=== PATIENT | female | born 1995 | race Caucasian/White ===

== ENCOUNTER 2017-08-07 08:39 | Outpatient (CLI) | payer BC ==
[2017-08-07] MEDS ORDERED: Iopamidol 370 76% 100 ML VIAL ONE (14:27)
== END 2017-08-07 08:40 | disposition home or self-care (01) ==
LOC: BICCT 08:39
PROVIDERS: ATTEND Internal Medicine
DX: R10.84 Generalized abdominal pain (principal)
CPT/HCPCS: 74177